=== PATIENT | male | born 1970 | race Caucasian/White ===

== ENCOUNTER 2021-10-07 12:20 | Emergency (ER) | payer OTHER, BC ==
[~2021-10-07] VITALS: Wt 81.6 kg
[~2021-10-07 12:20] MED LIST: ALLEGRA60 M1 PO; CIPROFLOXACIN500 MG PO; FLAGYL500 MG PO; VICODIN ES 7501 TAB PO; ZANTAC150 MG PO
== END 2021-10-07 15:45 | disposition home or self-care (01) ==
LOC: ED 12:20
DX: S50.02XA Contusion of left elbow, initial encounter (principal); Z79.899 Other long term (current) drug therapy; W18.39XA Other fall on same level, initial encounter; Y93.89 Activity, other specified; Y92.89 Other specified places as the place of occurrence of the external cause; Y99.8 Other external cause status